=== PATIENT | female | born 1935 | race African-American/Black ===

== ENCOUNTER 2023-12-29 15:47 | Inpatient (IN) | payer OTHER ==
[~2023-12-29 15:47] MED LIST: Iopamidol 370 76% 100 ML VIAL ONE
[2023-12-29 17:10] LABS: #Basophils 0.01 10x3/uL (0.0-0.2); #Eosinphils 0.02 10x3/uL (0.0-0.5); #Monocytes 1.24 10x3/uL (0.0-1.1); #Neutrophils 8.42 10x3/uL (1.5-8.4); %Basophils 0.1 % (0.0-2.0); %Eosinophils 0.2 % (0.0-6.0); %Lymphocytes 13.5 % (18.0-47.0); %Neutrophils 74.5 % (40.0-75.0); Hematocrit 18.4 % (34.9-44.5); Hemoglobin 4.8 g/dL (12.0-15.5); Mean Corpuscular HGB CONC 26.1 g/dL (32.0-36.0); Mean Corpuscular Hemoglobin 32.2 pg (27.0-33.0); Mean Corpuscular Volume 123.5 fL (81.6-98.3); Mean Platelet Volume 12.6 fL (7.4-10.4); Platelet Count 206 10x3/uL (150-450); RBC Distribution Width 24.1 % (11.5-14.5); Red Blood Cell (RBC) Count 1.49 10x6/uL (3.90-5.03); White Blood Cell (WBC) Count 11.3 10x3/uL (3.5-10.5)
[2023-12-29 17:25] LABS: ALT (SGPT) 127 U/L (8-55); AST (SGOT) 84 U/L (5-34); Albumin 2.2 g/dL (3.4-4.8); Alkaline Phosphatase 97 U/L (40-110); Anion Gap 16 mmol/L (10-20); Bilirubin, Total Less than 0.2 mg/dL (0.2-1.2); Calc. Creatinine Clearance 0 mL/min (70-130); Calcium 8.5 mg/dL (7.8-10.44); Carbon Dioxide 23 mmol/L (23-31); Chloride 127 mmol/L (98-107); Estimated GFR 12; Globulin 3.6 g/dL (2.4-3.5); Glucose 175 mg/dL (83-110); Magnesium 3.6 mg/dL (1.6-2.6); Potassium 5.7 mmol/L (3.5-5.1); Protein, Total 5.8 g/dL (5.8-8.1)
[2023-12-29 17:30] LABS: Iron 33 ug/dL (50-170); Iron Binding Capacity, Total 190 mcg/dL (265-497)
[2023-12-29 17:37] LABS: Hypochromia MODERATE=16-30 cells (100X) (0-5/hpf); Polychromasia MARKED = >4 cells (100X) (0-2/hpf)
[2023-12-29 17:38] LABS: BUN (Urea Nitrogen) 133 mg/dL (9.8-20.1); Basophilic Stippling SLIGHT = 1-2 cells (100X) (None Seen); Macrocytosis MODERATE=16-30 cells (100X) (0-5/hpf)
[2023-12-29 17:39] LABS: Anisocytosis MODERATE=16-30 cells (100X) (0-5/hpf); Platelet Adequacy Comment Appears Adequate; Tear Drops SLIGHT = 2-5 cells (100X) (0-1/hpf)
[2023-12-29 17:40] LABS: Reflex for Review?? YES
[2023-12-29 17:41] LABS: Sodium 160 mmol/L (136-145)
[2023-12-29] MEDS ORDERED: Acetaminophen 650 MG Suppository PR PRN (19:29)
[2023-12-29] MEDS ORDERED: Ondansetron PF 4 MG/2 ML Vial IVP PRN (19:29)
[2023-12-29] MEDS ORDERED: Dextrose 5% in Water 1,000 ML IV PRN (19:35)
[2023-12-29] MEDS ORDERED: Glucagon 1 MG/ML KIT IM PRN (19:35)
[2023-12-29] MEDS ORDERED: Dextrose 50% Abboject 50 ML SYRINGE SLOW IVP PRN (19:35)
[2023-12-29 19:50] LABS: INR-International Normal Ratio 1.2; Prothrombin Time 12.8 sec (9.5-12.1)
[2023-12-29 19:51] LABS: PTT 20.9 sec (22.0-33.0)
[2023-12-29 19:54] LABS: Iron 33 ug/dL (50-170); Iron Binding Capacity, Total 189 mcg/dL (265-497)
[2023-12-29] MEDS: Albumin 25% 25 GM (100 mL) BOT IVPB SCH (22:34)
[2023-12-29] MEDS: Calcium Gluc 4.6 MEQ/10 ML (100 MG/ML) SLOW IVP SCH (22:35)
[2023-12-29] MEDS: Dextrose 5 %-0.45 % NaCl 1,000 ML IV SCH (22:35)
[2023-12-29] MEDS: Pantoprazole 40 MG VIAL IVP SCH (22:35)
[2023-12-29 22:42] LABS: Anion Gap 17 mmol/L (10-20); Calc. Creatinine Clearance 0 mL/min (70-130); Calcium 8.3 mg/dL (7.8-10.44); Carbon Dioxide 16 mmol/L (23-31); Chloride 131 mmol/L (98-107); Estimated GFR 14; Glucose 131 mg/dL (83-110)
[2023-12-29 22:47] LABS: Critical Call Chemistry NUR.TL5@2245; Sodium 158 mmol/L (136-145)
[2023-12-29 22:58] LABS: BUN (Urea Nitrogen) 125 mg/dL (9.8-20.1)
[2023-12-29 23:01] VITALS: BMI 24.3
[2023-12-30 00:23] LABS: Bilirubin Neg (Negative); Blood, Urine 250 (Negative); Clarity Cloudy (Clear); Glucose, Urine (Dipstick) Normal (Negative); Ketone, Urine Negative (Negative); Leukocyte 500 (Negative); Nitrite Negative (Negative); Protein, Urine (Dipstick) 100 mg/dl (Neg-Trace); Urobilinogen Normal mg/dL (Less than 2)
[2023-12-30] MEDS: Calcium Gluc 4.6 MEQ/10 ML (100 MG/ML) SLOW IVP SCH (00:24)
[2023-12-30] MEDS: Insulin Regular, Human 100 UNIT/ML 10 ML VIAL IVP SCH (00:24)
[2023-12-30] MEDS: Dextrose 50% Abboject 50 ML SYRINGE SLOW IVP SCH (00:25)
[2023-12-30] MEDS ORDERED: Albuterol 2.5 MG (0.5 mL) NEB ONE (00:25)
[2023-12-30] MEDS: LOKELMA 10 GM PACKET PER TUBE SCH (00:25)
[2023-12-30] MEDS: Albuterol 2.5 MG (3 mL) NEB NEB SCH (00:43)
[2023-12-30 00:45] LABS: WBC/HPF Greater Than 50 HPF (0-3)
[2023-12-30 00:46] LABS: Bacteria/HPF 3+ HPF (None Seen); Squamous Epithelial 0-3 HPF (0-3); Yeast-Budding Rare HPF (None Seen)
[2023-12-30 00:47] LABS: Yeast-Hyphae Rare HPF (None Seen)
[2023-12-30] MEDS: Sodium Bicarb 50 MEQ/50 ML Abboject 8.4% SYRINGE IVP SCH (00:48)
[2023-12-30 02:14] LABS: Influenza A by NAA Not Detected (NotDetected); Influenza B by NAA Not Detected (NotDetected); RSV by NAA Not Detected (NotDetected); SARS-CoV-2 NAA Rapid Test Not Detected (NotDetected)
[2023-12-30] MEDS: Sodium Chloride 0.9% 500 ML IV SCH (02:20)
[2023-12-30] MEDS: cefTRIAXone\\ROCEPHIN 1 GM in Sodium Chloride 0.9% 100 ML IVPB SCH (02:28)
[2023-12-30 07:20] LABS: Anion Gap 17 mmol/L (10-20); BUN (Urea Nitrogen) 121 mg/dL (9.8-20.1); Calc. Creatinine Clearance 14 mL/min (70-130); Calcium 8.1 mg/dL (7.8-10.44); Carbon Dioxide 14 mmol/L (23-31); Chloride 134 mmol/L (98-107); Estimated GFR 16; Glucose 232 mg/dL (83-110); Potassium 4.6 mmol/L (3.5-5.1)
[2023-12-30 07:23] LABS: Critical Call Chemistry NUR.BW10@0723; Sodium 160 mmol/L (136-145)
[2023-12-30 07:24] LABS: ALT (SGPT) 76 U/L (8-55); AST (SGOT) 52 U/L (5-34); Albumin 2.3 g/dL (3.4-4.8); Alkaline Phosphatase 66 U/L (40-110); Bilirubin, Direct 0.1 mg/dL (0.1-0.3); Bilirubin, Total 0.3 mg/dL (0.2-1.2); Protein, Total 4.9 g/dL (5.8-8.1)
[2023-12-30 07:31] LABS: Hematocrit 30.8 % (34.9-44.5); Hemoglobin 9.1 g/dL (12.0-15.5); Mean Corpuscular HGB CONC 29.5 g/dL (32.0-36.0); Mean Corpuscular Hemoglobin 30.8 pg (27.0-33.0); Mean Corpuscular Volume 104.4 fL (81.6-98.3); Mean Platelet Volume 12.4 fL (7.4-10.4); Platelet Count 115 10x3/uL (150-450); RBC Distribution Width 26.5 % (11.5-14.5); Red Blood Cell (RBC) Count 2.95 10x6/uL (3.90-5.03); White Blood Cell (WBC) Count 8.6 10x3/uL (3.5-10.5)
[2023-12-30 07:38] LABS: MDiff Complete? YES
[2023-12-30 08:00] LABS: Band 15 % (5-11); Eosinophils 1 % (0-10); Lymphocytes 20 % (21-51); Metamyelocyte 1 % (0-0); Monocytes 3 % (0-10); Neutrophil 59 % (42-75); Nucleated RBC (Manual Ct) 3 % (0); Reactive Lymphocytes 1 % (0-10)
[2023-12-30 08:03] LABS: Anisocytosis MODERATE=16-30 cells (100X) (0-5/hpf); Macrocytosis SLIGHT = 6-15 cells (100X) (0-5/hpf)
[2023-12-30 08:04] LABS: Crenated RBC SLIGHT = 1-5 cells (100X) (None Seen); Platelet Adequacy Comment Appears Decreased; Polychromasia MODERATE = 3-4 cells (100X) (0-2/hpf); Vacuoles SLIGHT
[2023-12-30] MEDS: Pantoprazole 40 MG VIAL IVP SCH (10:04)
[2023-12-30] MEDS: Albumin 25% 25 GM (100 mL) BOT IVPB SCH (10:17)
[2023-12-30 10:46] LABS: Hematocrit 30.1 % (34.9-44.5); Hemoglobin 8.9 g/dL (12.0-15.5); Mean Corpuscular HGB CONC 29.6 g/dL (32.0-36.0); Mean Corpuscular Hemoglobin 30.5 pg (27.0-33.0); Mean Corpuscular Volume 103.1 fL (81.6-98.3); Mean Platelet Volume 12.3 fL (7.4-10.4); Platelet Count 126 10x3/uL (150-450); RBC Distribution Width 26.5 % (11.5-14.5); Red Blood Cell (RBC) Count 2.92 10x6/uL (3.90-5.03); White Blood Cell (WBC) Count 6.6 10x3/uL (3.5-10.5)
[2023-12-30 10:48] LABS: MDiff Complete? YES
[2023-12-30 11:02] LABS: Anion Gap 12 mmol/L (10-20); BUN (Urea Nitrogen) 119 mg/dL (9.8-20.1); Calc. Creatinine Clearance 14 mL/min (70-130); Calcium 8.5 mg/dL (7.8-10.44); Carbon Dioxide 21 mmol/L (23-31); Chloride 132 mmol/L (98-107); Critical Call Chemistry N UR.BW10@1057; Estimated GFR 16; Glucose 248 mg/dL (83-110); Potassium 4.3 mmol/L (3.5-5.1); Sodium 161 mmol/L (136-145)
[2023-12-30] MEDS: Dextrose 5% in Water 1,000 ML IV SCH ×2 (11:17→18:28)
[2023-12-30 11:52] LABS: Band 20 % (5-11); Eosinophils 3 % (0-10); Lymphocytes 18 % (21-51); Monocytes 12 % (0-10); Neutrophil 47 % (42-75); Nucleated RBC (Manual Ct) 1 % (0)
[2023-12-30 11:56] LABS: Anisocytosis MODERATE=16-30 cells (100X) (0-5/hpf); Macrocytosis SLIGHT = 6-15 cells (100X) (0-5/hpf)
[2023-12-30 11:57] LABS: Crenated RBC SLIGHT = 1-5 cells (100X) (None Seen); Platelet Adequacy Comment Appears Decreased; Polychromasia MODERATE = 3-4 cells (100X) (0-2/hpf); Vacuoles SLIGHT
[2023-12-30 17:15] LABS: Sodium 162 mmol/L (136-145)
[2023-12-30 20:15] LABS: Sodium 161 mmol/L (136-145)
[2023-12-30] MEDS: Lantus 1000 UNITS/10 ML VIAL SC SCH (21:04)
[2023-12-30] MEDS: Insulin Lispro 100 UNIT/ML 10 ML VIAL SC PRN (21:08)
[2023-12-31 00:58] LABS: Sodium 161 mmol/L (136-145)
[2023-12-31 04:40] LABS: MDiff Complete? YES
[2023-12-31 04:43] LABS: Hematocrit 27.3 % (34.9-44.5); Hemoglobin 8.3 g/dL (12.0-15.5); Mean Corpuscular HGB CONC 30.4 g/dL (32.0-36.0); Mean Corpuscular Hemoglobin 30.7 pg (27.0-33.0); Mean Corpuscular Volume 101.1 fL (81.6-98.3); Mean Platelet Volume 12.3 fL (7.4-10.4); Platelet Count 123 10x3/uL (150-450); RBC Distribution Width 27.1 % (11.5-14.5); White Blood Cell (WBC) Count 6.2 10x3/uL (3.5-10.5)
[2023-12-31 04:44] LABS: Anion Gap 15 mmol/L (10-20); BUN (Urea Nitrogen) 95 mg/dL (9.8-20.1); Calc. Creatinine Clearance 16 mL/min (70-130); Calcium 8.8 mg/dL (7.8-10.44); Carbon Dioxide 17 mmol/L (23-31); Chloride 128 mmol/L (98-107); Estimated GFR 19; Glucose 239 mg/dL (83-110); Potassium 4.1 mmol/L (3.5-5.1)
[2023-12-31 04:48] LABS: Sodium 156 mmol/L (136-145)
[2023-12-31 05:26] LABS: Band 26 % (5-11); Eosinophils 3 % (0-10); Lymphocytes 17 % (21-51); Monocytes 14 % (0-10); Neutrophil 40 % (42-75); Nucleated RBC (Manual Ct) 2 % (0)
[2023-12-31 05:33] LABS: Anisocytosis MODERATE=16-30 cells (100X) (0-5/hpf); Macrocytosis SLIGHT = 6-15 cells (100X) (0-5/hpf); Platelet Adequacy Comment Appears Decreased; Polychromasia MODERATE = 3-4 cells (100X) (0-2/hpf)
[2023-12-31] MEDS: Dextrose 5% in Water 1,000 ML IV SCH (06:25)
[2023-12-31 09:21] LABS: Anion Gap 15 mmol/L (10-20); BUN (Urea Nitrogen) 89 mg/dL (9.8-20.1); Calc. Creatinine Clearance 17 mL/min (70-130); Calcium 9.1 mg/dL (7.8-10.44); Carbon Dioxide 19 mmol/L (23-31); Chloride 124 mmol/L (98-107); Estimated GFR 20; Glucose 216 mg/dL (83-110); Potassium 3.7 mmol/L (3.5-5.1)
[2023-12-31 09:28] LABS: Critical Call Chemistry NUR.BS8@0928; Sodium 154 mmol/L (136-145)
[2023-12-31] MEDS ORDERED: Ipratropium/Albuterol 3 ML NEB NEB PRN (10:18)
[2023-12-31] MEDS: Furosemide 40 MG (4 mL) VIAL SLOW IVP SCH ×2 (13:01→18:35)
[2024-01-01 04:50] LABS: MDiff Complete? YES
[2024-01-01 05:00] LABS: Anion Gap 16 mmol/L (10-20); BUN (Urea Nitrogen) 79 mg/dL (9.8-20.1); Calc. Creatinine Clearance 17 mL/min (70-130); Calcium 9.1 mg/dL (7.8-10.44); Carbon Dioxide 18 mmol/L (23-31); Chloride 122 mmol/L (98-107); Estimated GFR 20; Glucose 274 mg/dL (83-110); Potassium 4.1 mmol/L (3.5-5.1)
[2024-01-01 05:04] LABS: Hematocrit 30.8 % (34.9-44.5); Hemoglobin 9.5 g/dL (12.0-15.5); Mean Corpuscular HGB CONC 30.8 g/dL (32.0-36.0); Mean Corpuscular Hemoglobin 31.5 pg (27.0-33.0); Mean Platelet Volume 12.2 fL (7.4-10.4); Platelet Count 178 10x3/uL (150-450); RBC Distribution Width 26.8 % (11.5-14.5); Red Blood Cell (RBC) Count 3.02 10x6/uL (3.90-5.03); White Blood Cell (WBC) Count 11.3 10x3/uL (3.5-10.5)
[2024-01-01 05:07] LABS: Sodium 152 mmol/L (136-145)
[2024-01-01 05:14] LABS: Band 38 % (5-11); Eosinophils 3 % (0-10); Lymphocytes 7 % (21-51); Monocytes 14 % (0-10); Neutrophil 38 % (42-75); Nucleated RBC (Manual Ct) 2 % (0)
[2024-01-01 05:17] LABS: Anisocytosis MODERATE=16-30 cells (100X) (0-5/hpf); Hypochromia SLIGHT = 6-15 cells (100X) (0-5/hpf); Large Platelets SLIGHT (None Seen); Macrocytosis MODERATE=16-30 cells (100X) (0-5/hpf); Microcytosis SLIGHT = 6-15 cells (100X) (0-5/hpf); Ovalocytes SLIGHT = 2-5 cells (100X) (0-1/hpf); Platelet Adequacy Comment Appears Adequate; Polychromasia MODERATE = 3-4 cells (100X) (0-2/hpf); Toxic Granulation SLIGHT
[2024-01-01] MEDS: Piperacillin/Tazobactam 3.375 GM in Sodium Chloride 0.9% 100 ML IVPB SCH ×2 (10:06→12:45)
[2024-01-01] MEDS: Lantus 1000 UNITS/10 ML VIAL SC SCH (10:07)
[2024-01-01] MEDS: Furosemide 40 MG (4 mL) VIAL SLOW IVP SCH ×2 (10:07→15:14)
[2024-01-01] MEDS: Carvedilol 25 MG TAB PO SCH (10:07)
[2024-01-01] MEDS: Albumin 25% 25 GM (100 mL) BOT IVPB SCH (10:07)
[2024-01-01] MEDS: Atorvastatin Calcium 20 MG TAB PO SCH (10:08)
[2024-01-01] MEDS: Loratadine 10 MG TAB PO SCH (10:08)
[2024-01-01] MEDS: Acetaminophen 325 MG TAB PO PRN (10:08)
[2024-01-01] MEDS: Aspirin 81 mg Enteric Coated Tablet PO SCH (10:08)
[2024-01-01] MEDS: Polyethylene Glycol 3350 17 GM Packet PO SCH (10:41)
[2024-01-01] MEDS: Senokot S 8.6-50 MG TAB PO SCH (10:41)
[2024-01-01] MEDS: Metoclopramide HCl 10 MG (2 mL) VIAL IVP SCH (11:31)
[2024-01-01] MEDS: Fluconazole 100 MG TAB PO SCH (14:54)
[2024-01-01 15:26] LABS: ALV-art Gradient -168.195 mmHg (0-20); Actual Bicarbonate (HCO3a) 23.7 mEq/L (22-28); Analyzer IN Cardio CS ICU; Base Excess (BEa) -5.1 mEq/L (-2.0 to +3.0); CO2 Tension 66.5 mmHg (35.0-45.0); Calcium, Ionized (arterial) 1.28 mmol/L (1.12-1.30); Carboxyhemoglobin (COHb) 0.1 gm% (0.0-3.0); Hematocrit-ABG 26 % (36.0-47.0); Hemoglobin (Hb) 8.8 g/dL (12.0-16.0); O2 Tension (PaO2), arterial 92.2 mmHg (> 60.0); Potassium - ABG Lab 3.79 mmol/L (3.70-5.30); Puncture Site Right Radial artery; pH, Arterial 7.169 (7.35-7.45)
[2024-01-01] MEDS: Ipratropium/Albuterol 3 ML NEB NEB SCH (15:43)
[2024-01-01] MEDS: Carvedilol 3.125 MG TAB PO SCH (20:37)
[2024-01-01] MEDS: Donepezil HCl 5 MG TAB PO SCH (20:37)
[2024-01-02 04:32] LABS: Band 12 % (5-11); Eosinophils 2 % (0-10); Lymphocytes 10 % (21-51); Metamyelocyte 3 % (0-0); Monocytes 10 % (0-10); Neutrophil 63 % (42-75)
[2024-01-02 04:34] LABS: Anisocytosis MODERATE=16-30 cells (100X) (0-5/hpf); Polychromasia SLIGHT = 2-3 cells (100X) (0-2/hpf)
[2024-01-02 04:36] LABS: Macrocytosis MODERATE=16-30 cells (100X) (0-5/hpf); Rouleaux Formation SLIGHT = 1-5 cells (100X) (None Seen)
[2024-01-02 04:37] LABS: Platelet Adequacy Comment Appears Adequate; Toxic Granulation SLIGHT
[2024-01-02 05:01] LABS: BUN (Urea Nitrogen) 73 mg/dL (9.8-20.1); Magnesium 2.6 mg/dL (1.6-2.6)
[2024-01-02 05:08] LABS: Hematocrit 26.6 % (34.9-44.5); Hemoglobin 8.1 g/dL (12.0-15.5); Mean Corpuscular HGB CONC 30.5 g/dL (32.0-36.0); Mean Corpuscular Hemoglobin 31.3 pg (27.0-33.0); Mean Corpuscular Volume 102.7 fL (81.6-98.3); Mean Platelet Volume 11.9 fL (7.4-10.4); Platelet Count 142 10x3/uL (150-450); RBC Distribution Width 25.5 % (11.5-14.5); Red Blood Cell (RBC) Count 2.59 10x6/uL (3.90-5.03); White Blood Cell (WBC) Count 10.5 10x3/uL (3.5-10.5)
[2024-01-02 05:19] LABS: Anion Gap 17 mmol/L (10-20); Calc. Creatinine Clearance 16 mL/min (70-130); Calcium 9.2 mg/dL (7.8-10.44); Carbon Dioxide 19 mmol/L (23-31); Chloride 122 mmol/L (98-107); Estimated GFR 18; Glucose 156 mg/dL (83-110); Potassium 3.6 mmol/L (3.5-5.1)
[2024-01-02 05:22] LABS: Sodium 154 mmol/L (136-145)
[2024-01-02 05:25] LABS: MDiff Complete? YES
[2024-01-02] MEDS: Loratadine 10 MG TAB PO SCH (08:07)
[2024-01-02] MEDS: Aspirin 81 mg Enteric Coated Tablet PO SCH (08:07)
[2024-01-02 10:51] LABS: ALV-art Gradient 254.275 mmHg (0-20); Actual Bicarbonate (HCO3a) 23.8 mEq/L (22-28); Analyzer IN Cardio CS ER; Base Excess (BEa) -2.2 mEq/L (-2.0 to +3.0); CO2 Tension 46.5 mmHg (35.0-45.0); Calcium, Ionized (arterial) 1.25 mmol/L (1.12-1.30); Carboxyhemoglobin (COHb) 0.3 gm% (0.0-3.0); Critical Notified Whom: LEKE; Hematocrit-ABG 27 % (36.0-47.0); Hemoglobin (Hb) 9.1 g/dL (12.0-16.0); O2 Tension (PaO2), arterial 44.1 mmHg (> 60.0); Potassium - ABG Lab 3.46 mmol/L (3.70-5.30); Puncture Site Right Radial artery; pH, Arterial 7.327 (7.35-7.45)
[2024-01-02] MEDS: Carvedilol 3.125 MG TAB PO SCH (11:40)
[2024-01-02] MEDS: Scopolamine 1 mg/72 hour Patch TD SCH (17:57)
[2024-01-02] MEDS: Carvedilol 6.25 MG TAB PO SCH (21:27)
[2024-01-02] MEDS: Morphine 2 MG/ML VIAL SLOW IVP SCH (21:46)
[2024-01-03 04:16] LABS: #Basophils 0.02 10x3/uL (0.0-0.2); #Eosinphils 0.16 10x3/uL (0.0-0.5); #Monocytes 0.76 10x3/uL (0.0-1.1); #Neutrophils 8.21 10x3/uL (1.5-8.4); %Basophils 0.2 % (0.0-2.0); %Eosinophils 1.6 % (0.0-6.0); %Lymphocytes 6.7 % (18.0-47.0); %Monocytes 7.7 % (0.0-10.0); %Neutrophils 83.4 % (40.0-75.0); Hemoglobin 8.1 g/dL (12.0-15.5); Mean Corpuscular Hemoglobin 30.9 pg (27.0-33.0); Mean Corpuscular Volume 103.1 fL (81.6-98.3); Mean Platelet Volume 11.8 fL (7.4-10.4); Platelet Count 144 10x3/uL (150-450); RBC Distribution Width 24.3 % (11.5-14.5); Red Blood Cell (RBC) Count 2.62 10x6/uL (3.90-5.03); White Blood Cell (WBC) Count 9.1 10x3/uL (3.5-10.5)
[2024-01-03 04:25] LABS: Anion Gap 19 mmol/L (10-20); BUN (Urea Nitrogen) 66 mg/dL (9.8-20.1); Calc. Creatinine Clearance 17 mL/min (70-130); Calcium 9.1 mg/dL (7.8-10.44); Carbon Dioxide 18 mmol/L (23-31); Chloride 122 mmol/L (98-107); Estimated GFR 20; Glucose 114 mg/dL (83-110); Potassium 3.7 mmol/L (3.5-5.1)
[2024-01-03 04:31] LABS: Sodium 155 mmol/L (136-145)
[2024-01-03] MEDS: methylPREDNISolone Sod Succ 40 MG VIAL IVP SCH ×2 (10:07→22:50)
[2024-01-03] MEDS: Aspirin Chewable 81 MG TAB PER TUBE SCH (10:13)
[2024-01-03] MEDS: Loratadine 10 MG TAB PER TUBE SCH (10:13)
[2024-01-03] MEDS: Polyethylene Glycol 3350 17 GM Packet PER TUBE SCH (10:15)
[2024-01-03] MEDS: Senokot S 8.6-50 MG TAB PER TUBE SCH ×2 (10:16→23:22)
[2024-01-03] MEDS: Lidocaine 4% Patch TD SCH (11:13)
[2024-01-03] MEDS: Transdermal Patch Removal TOP SCH (23:00)
[2024-01-03] MEDS: Carvedilol 6.25 MG TAB PER TUBE SCH (23:10)
[2024-01-03] MEDS: Donepezil HCl 5 MG TAB PER TUBE SCH (23:10)
[2024-01-03] MEDS: Acetaminophen 325 MG TAB PER TUBE PRN (23:12)
[2024-01-04 03:57] LABS: #Basophils 0.01 10x3/uL (0.0-0.2); #Monocytes 0.07 10x3/uL (0.0-1.1); #Neutrophils 6.36 10x3/uL (1.5-8.4); %Basophils 0.1 % (0.0-2.0); %Lymphocytes 3.6 % (18.0-47.0); %Neutrophils 94.7 % (40.0-75.0); Hematocrit 29.5 % (34.9-44.5); Hemoglobin 8.7 g/dL (12.0-15.5); Mean Corpuscular HGB CONC 29.5 g/dL (32.0-36.0); Mean Corpuscular Hemoglobin 30.4 pg (27.0-33.0); Mean Corpuscular Volume 103.1 fL (81.6-98.3); Mean Platelet Volume 11.2 fL (7.4-10.4); Platelet Count 147 10x3/uL (150-450); Red Blood Cell (RBC) Count 2.86 10x6/uL (3.90-5.03); White Blood Cell (WBC) Count 6.7 10x3/uL (3.5-10.5)
[2024-01-04 04:05] LABS: Anion Gap 18 mmol/L (10-20); BUN (Urea Nitrogen) 62 mg/dL (9.8-20.1); Calc. Creatinine Clearance 16 mL/min (70-130); Calcium 8.7 mg/dL (7.8-10.44); Carbon Dioxide 18 mmol/L (23-31); Chloride 118 mmol/L (98-107); Estimated GFR 19; Glucose 388 mg/dL (83-110); Sodium 150 mmol/L (136-145)
[2024-01-04] MEDS: Lantus 1000 UNITS/10 ML VIAL SC SCH ×2 (09:59→20:21)
[2024-01-04] MEDS: Loratadine 10 MG TAB PER TUBE SCH (10:25)
[2024-01-04] MEDS: Atorvastatin Calcium 20 MG TAB PER TUBE SCH (10:35)
[2024-01-04] MEDS: Insulin Regular, Human 100 UNIT/ML 10 ML VIAL SC SCH (17:51)
[2024-01-04] MEDS: Albumin 25% 25 GM (100 mL) BOT IVPB SCH (20:19)
[2024-01-04] MEDS: methylPREDNISolone Sod Succ 40 MG VIAL IVP SCH (20:22)
[2024-01-05] MEDS: hydrALAZINE 20 MG/ML VIAL SLOW IVP PRN (03:13)
[2024-01-05 05:34] LABS: Anion Gap 18 mmol/L (10-20); BUN (Urea Nitrogen) 64 mg/dL (9.8-20.1); Calc. Creatinine Clearance 15 mL/min (70-130); Calcium 9.5 mg/dL (7.8-10.44); Carbon Dioxide 19 mmol/L (23-31); Chloride 116 mmol/L (98-107); Estimated GFR 18; Glucose 269 mg/dL (83-110); Potassium 3.5 mmol/L (3.5-5.1); Sodium 149 mmol/L (136-145)
[2024-01-05 05:39] LABS: #Basophils 0.01 10x3/uL (0.0-0.2); #Neutrophils 7.35 10x3/uL (1.5-8.4); %Basophils 0.1 % (0.0-2.0); %Lymphocytes 4.7 % (18.0-47.0); %Monocytes 4.8 % (0.0-10.0); %Neutrophils 88.2 % (40.0-75.0); Hematocrit 25.7 % (34.9-44.5); Hemoglobin 7.9 g/dL (12.0-15.5); Mean Corpuscular HGB CONC 30.7 g/dL (32.0-36.0); Mean Corpuscular Hemoglobin 30.7 pg (27.0-33.0); Mean Platelet Volume 11.4 fL (7.4-10.4); Platelet Count 159 10x3/uL (150-450); RBC Distribution Width 21.4 % (11.5-14.5); Red Blood Cell (RBC) Count 2.57 10x6/uL (3.90-5.03); White Blood Cell (WBC) Count 8.3 10x3/uL (3.5-10.5)
[2024-01-05] MEDS: Albumin 25% 25 GM (100 mL) BOT IVPB SCH (09:16)
[2024-01-05] MEDS: guaiFENesin ER 600 MG TAB PO SCH ×2 (13:02→21:03)
[2024-01-05] MEDS: Atorvastatin Calcium 20 MG TAB PER TUBE SCH (21:05)
[2024-01-06 04:13] LABS: #Basophils 0.02 10x3/uL (0.0-0.2); #Neutrophils 6.97 10x3/uL (1.5-8.4); %Basophils 0.3 % (0.0-2.0); %Monocytes 3.8 % (0.0-10.0); %Neutrophils 87.4 % (40.0-75.0); Hematocrit 26.4 % (34.9-44.5); Hemoglobin 8.2 g/dL (12.0-15.5); Mean Corpuscular HGB CONC 31.1 g/dL (32.0-36.0); Mean Corpuscular Hemoglobin 30.8 pg (27.0-33.0); Mean Corpuscular Volume 99.2 fL (81.6-98.3); Platelet Count 167 10x3/uL (150-450); RBC Distribution Width 21.4 % (11.5-14.5); Red Blood Cell (RBC) Count 2.66 10x6/uL (3.90-5.03)
[2024-01-06 04:29] LABS: Anion Gap 17 mmol/L (10-20); BUN (Urea Nitrogen) 63 mg/dL (9.8-20.1); Calc. Creatinine Clearance 15 mL/min (70-130); Calcium 9.1 mg/dL (7.8-10.44); Carbon Dioxide 20 mmol/L (23-31); Chloride 114 mmol/L (98-107); Estimated GFR 17; Glucose 285 mg/dL (83-110); Potassium 3.3 mmol/L (3.5-5.1); Sodium 148 mmol/L (136-145)
[2024-01-06] MEDS: Potassium Bicarbonate/Cit Ac 20 MEQ TAB PO SCH (09:38)
[2024-01-06] MEDS: Amlodipine 5 MG TAB PO SCH (09:40)
[2024-01-06] MEDS: Lantus 1000 UNITS/10 ML VIAL SC SCH (09:41)
[2024-01-06] MEDS: Lorazepam 0.5 MG TAB PO PRN (14:58)
[2024-01-06] MEDS: Ipratropium/Albuterol 3 ML NEB NEB SCH (19:15)
[2024-01-06] MEDS: GUAIFENESIN SF SOLN 200 MG/10 ML UDCUP PO SCH (22:56)
[2024-01-07 04:06] LABS: #Basophils 0.01 10x3/uL (0.0-0.2); #Monocytes 0.37 10x3/uL (0.0-1.1); #Neutrophils 6.49 10x3/uL (1.5-8.4); %Basophils 0.1 % (0.0-2.0); %Lymphocytes 4.1 % (18.0-47.0); %Monocytes 4.9 % (0.0-10.0); %Neutrophils 86.6 % (40.0-75.0); Hematocrit 28.5 % (34.9-44.5); Hemoglobin 8.4 g/dL (12.0-15.5); Mean Corpuscular HGB CONC 29.5 g/dL (32.0-36.0); Mean Corpuscular Hemoglobin 30.2 pg (27.0-33.0); Mean Corpuscular Volume 102.5 fL (81.6-98.3); Mean Platelet Volume 10.8 fL (7.4-10.4); Platelet Count 154 10x3/uL (150-450); RBC Distribution Width 20.9 % (11.5-14.5); Red Blood Cell (RBC) Count 2.78 10x6/uL (3.90-5.03); White Blood Cell (WBC) Count 7.5 10x3/uL (3.5-10.5)
[2024-01-07 04:22] LABS: Anion Gap 16 mmol/L (10-20); BUN (Urea Nitrogen) 68 mg/dL (9.8-20.1); Calc. Creatinine Clearance 14 mL/min (70-130); Calcium 8.8 mg/dL (7.8-10.44); Carbon Dioxide 19 mmol/L (23-31); Chloride 113 mmol/L (98-107); Estimated GFR 16; Glucose 353 mg/dL (83-110); Potassium 3.7 mmol/L (3.5-5.1); Sodium 144 mmol/L (136-145)
[2024-01-07] MEDS: Lantus 1000 UNITS/10 ML VIAL SC SCH ×2 (09:30→21:37)
[2024-01-07] MEDS: GUAIFENESIN SF SOLN 200 MG/10 ML UDCUP PO SCH (09:31)
[2024-01-07] MEDS: Amlodipine 5 MG TAB PO SCH ×2 (09:33→21:36)
[2024-01-07] MEDS ORDERED: Lantus 1000 UNITS/10 ML VIAL SC SCH (21:00)
[2024-01-07] MEDS: Carvedilol 6.25 MG TAB PER TUBE SCH (21:35)
[2024-01-08 04:13] LABS: Hematocrit 28.6 % (34.9-44.5); Hemoglobin 8.4 g/dL (12.0-15.5); Mean Corpuscular HGB CONC 29.4 g/dL (32.0-36.0); Mean Corpuscular Hemoglobin 30.5 pg (27.0-33.0); Mean Platelet Volume 11.9 fL (7.4-10.4); Platelet Count 161 10x3/uL (150-450); Red Blood Cell (RBC) Count 2.75 10x6/uL (3.90-5.03); White Blood Cell (WBC) Count 8.5 10x3/uL (3.5-10.5)
[2024-01-08 04:14] LABS: MDiff Complete? YES
[2024-01-08 04:26] LABS: Anion Gap 18 mmol/L (10-20); BUN (Urea Nitrogen) 79 mg/dL (9.8-20.1); Calc. Creatinine Clearance 12 mL/min (70-130); Calcium 8.6 mg/dL (7.8-10.44); Carbon Dioxide 16 mmol/L (23-31); Chloride 110 mmol/L (98-107); Estimated GFR 14; Potassium 3.7 mmol/L (3.5-5.1); Sodium 140 mmol/L (136-145)
[2024-01-08 04:30] LABS: Critical Call Chemistry NUR.JP14@0428; Glucose 405 mg/dL (83-110)
[2024-01-08 04:39] LABS: Band 4 % (5-11); Lymphocytes 5 % (21-51); Metamyelocyte 2 % (0-0); Monocytes 3 % (0-10); Neutrophil 86 % (42-75); Nucleated RBC (Manual Ct) 2 % (0)
[2024-01-08 04:53] LABS: Anisocytosis MODERATE=16-30 cells (100X) (0-5/hpf); Macrocytosis MODERATE=16-30 cells (100X) (0-5/hpf)
[2024-01-08 04:54] LABS: Ovalocytes SLIGHT = 2-5 cells (100X) (0-1/hpf); Platelet Adequacy Comment Appears Adequate; Toxic Granulation SLIGHT
[2024-01-08] MEDS: predniSONE 20 MG TAB PO SCH (09:11)
[2024-01-08] MEDS: Lantus 1000 UNITS/10 ML VIAL SC SCH (09:37)
[2024-01-09 04:05] LABS: Hematocrit 26.7 % (34.9-44.5); Hemoglobin 8.1 g/dL (12.0-15.5); MDiff Complete? YES; Mean Corpuscular HGB CONC 30.3 g/dL (32.0-36.0); Mean Corpuscular Hemoglobin 30.6 pg (27.0-33.0); Mean Corpuscular Volume 100.8 fL (81.6-98.3); Mean Platelet Volume 11.1 fL (7.4-10.4); Platelet Count 146 10x3/uL (150-450); RBC Distribution Width 20.6 % (11.5-14.5); Red Blood Cell (RBC) Count 2.65 10x6/uL (3.90-5.03); White Blood Cell (WBC) Count 10.4 10x3/uL (3.5-10.5)
[2024-01-09 04:17] LABS: Anion Gap 16 mmol/L (10-20); BUN (Urea Nitrogen) 89 mg/dL (9.8-20.1); Calc. Creatinine Clearance 11 mL/min (70-130); Calcium 8.3 mg/dL (7.8-10.44); Carbon Dioxide 17 mmol/L (23-31); Chloride 109 mmol/L (98-107); Estimated GFR 12; Glucose 279 mg/dL (83-110); Potassium 3.2 mmol/L (3.5-5.1); Sodium 139 mmol/L (136-145)
[2024-01-09 04:49] LABS: Band 7 % (5-11); Lymphocytes 8 % (21-51); Metamyelocyte 1 % (0-0); Monocytes 5 % (0-10); Myelocyte 1 % (0-0); Neutrophil 78 % (42-75); Nucleated RBC (Manual Ct) 2 % (0)
[2024-01-09 04:55] LABS: Anisocytosis MODERATE=16-30 cells (100X) (0-5/hpf); Basophilic Stippling SLIGHT = 1-2 cells (100X) (None Seen); Macrocytosis SLIGHT = 6-15 cells (100X) (0-5/hpf); Ovalocytes SLIGHT = 2-5 cells (100X) (0-1/hpf); Platelet Adequacy Comment Appears Adequate; Toxic Granulation SLIGHT
[2024-01-09] MEDS: predniSONE 10 MG TAB PO SCH (07:48)
[2024-01-09 09:57] VITALS: BMI 24.1
[2024-01-09 17:25] VITALS: BP 93/44; TEMP 96.4
== END 2024-01-09 19:35 | disposition hospice, home (50) | DRG 871 ==
LOC: CSHERS 15:47 → CSHTELE 19:29
PROVIDERS: ADMIT Student in an Organized Health Care Education/Training Program; ATTEND Family Medicine
PROC: 30233J1 Transfusion of Nonautologous Serum Albumin into Peripheral Vein, Percutaneous Approach (ICD-10-PCS; 2023-12-29)
PROC: 30233N1 Transfusion of Nonautologous Red Blood Cells into Peripheral Vein, Percutaneous Approach (ICD-10-PCS; 2023-12-29)
PROC: 5A09457 Assistance with Respiratory Ventilation, 24-96 Consecutive Hours, Continuous Positive Airway Pressure (ICD-10-PCS; 2023-12-29)
PROC: 4A133R1 Monitoring of Arterial Saturation, Peripheral, Percutaneous Approach (ICD-10-PCS; principal; 2024-01-01)
DX: A41.9 Sepsis, unspecified organism (principal); G93.41 Metabolic encephalopathy; R57.1 Hypovolemic shock; I50.33 Acute on chronic diastolic (congestive) heart failure; J69.0 Pneumonitis due to inhalation of food and vomit; J96.21 Acute and chronic respiratory failure with hypoxia; J96.22 Acute and chronic respiratory failure with hypercapnia; R65.21 Severe sepsis with septic shock; I13.0 Hypertensive heart and chronic kidney disease with heart failure and stage 1 through stage 4 chronic kidney disease, or unspecified chronic kidney disease; N17.9 Acute kidney failure, unspecified; E87.0 Hyperosmolality and hypernatremia; K92.2 Gastrointestinal hemorrhage, unspecified; F01.54 Vascular dementia, unspecified severity, with anxiety; E87.20 Acidosis, unspecified; N39.0 Urinary tract infection, site not specified; D62 Acute posthemorrhagic anemia; R64 Cachexia; E46 Unspecified protein-calorie malnutrition; Z66 Do not resuscitate; Z51.5 Encounter for palliative care; N18.30 Chronic kidney disease, stage 3 unspecified; R13.10 Dysphagia, unspecified; E87.5 Hyperkalemia; F17.210 Nicotine dependence, cigarettes, uncomplicated; E78.00 Pure hypercholesterolemia, unspecified; Z96.641 Presence of right artificial hip joint; E89.0 Postprocedural hypothyroidism; E11.22 Type 2 diabetes mellitus with diabetic chronic kidney disease; E86.0 Dehydration; I48.0 Paroxysmal atrial fibrillation; I69.391 Dysphagia following cerebral infarction; Z74.01 Bed confinement status; Z90.710 Acquired absence of both cervix and uterus; Z79.899 Other long term (current) drug therapy; Z88.5 Allergy status to narcotic agent; Z79.82 Long term (current) use of aspirin; Z79.4 Long term (current) use of insulin; Z79.02 Long term (current) use of antithrombotics/antiplatelets; Z90.49 Acquired absence of other specified parts of digestive tract; Z99.3 Dependence on wheelchair; Z93.1 Gastrostomy status; Z79.01 Long term (current) use of anticoagulants; Z68.24 Body mass index [BMI] 24.0-24.9, adult
CPT/HCPCS: 0241U; 36415; 36416; 36430; 36600; 70450; 70496; 70498; 71045; 80048; 80053; 80076; 81001; 82274; 82607; 82728; 82805; 83540; 83550; 83605; 83735; 83880; 84145; 84484; 85025; 85060; 85610; 85730; 86141; 86850; 86900; 86901; 87040; 87077; 87086; 93005; 93306; 94640; 94660; 94760; 94762; 97139; J0360; J0612; J0696; J1815; J1940; J2272; J2470; J2543; J2765; J2919; J7030; J7042; J7070; J7512; J7611; J7620; J7999; P9016; P9047; Q9967